=== PATIENT | female | born 1970 | race Caucasian/White ===

== ENCOUNTER 2016-10-28 16:05 | Emergency (ER) | payer MEDICAID, OTHER ==
[~2016-10-28] VITALS: Wt 54.5 kg
[~2016-10-28 16:05] MED LIST: IBUPROFEN PRN
[2016-10-28] MEDS ORDERED: ELIM TOP (16:37)
[2016-10-28] MEDS ORDERED: PRED20TA PO (16:38)
[2016-10-28] MEDS ORDERED: BEN25 PO (16:38)
--- NOTE | 2016-10-28 16:52 | ERD ---
ER Documentation Chief Complaint Date/Time DATE: 10/28/16 TIME: 16:49 Chief Complaint RASH SINCE YESTERDAY NO SOB NO STRIDOR . NO NEW FOODS OR EXPOSURE HPI This is a 46-year-old female presents to the ER for a rash that is extremely itchy. Patient got rash yesterday. Mostly located around her wrist however has arthritis body. Denies eating anything different or different. She denies any shortness of breath ,lip, eye swelling. ROS 12 point review of systems was done, all negative except per HPI. Medications Home Meds Active Scripts Diphenhydramine Hcl* (Benadryl*) 25 Mg Cap, 25 MG PO Q6, #30 CAP Prov:ROBERTO,ZAIDA C 10/28/16 Prednisone* (Prednisone*) 20 Mg Tab, 40 MG PO DAILY for 4 Days, TAB Prov:ROBERTO,ZAIDA C 10/28/16 Permethrin* (Elimite*) 5% Cr, 1 APPLIC TOP ONCE, #2 TUB Prov:ROBERTOSHERRYZAIDA C 10/28/16 Reported Medications [Ibuprofen Prn] No Conflict Check 11/25/09 Allergies Allergies: Coded Allergies: No Known Drug Allergies (Verified Allergy, Mild, 12/22/12) PMhx/Soc History of Surgery: No Anesthesia Reaction: No Hx Neurological Disorder: No Hx Respiratory Disorders: No Hx Cardiac Disorders: No Hx Psychiatric Problems: No Hx Miscellaneous Medical Probl: Yes (UTI, KIDNEY INFECTIONS.) Hx Alcohol Use: No Hx Substance Use: No Hx Tobacco Use: No Physical Exam Vitals Vital Signs Date Time Temp Pulse Resp B/P Pulse Ox O2 Delivery O2 Flow Rate FiO2 10/28/16 16:12 98.8 71 20 123/62 100 Physical Exam GENERAL: The patient is well developed and appropriate for usual state of health , in no apparent distress. HEENT: Atraumatic. No lip, tongue, eye swelling CHEST: Clear to auscultation bilaterally. There are no rales, wheezes or rhonchi. HEART: Regular rate and rhythm. No murmurs, clicks, rubs or gallops. NEURO: Alert and oriented. SKIN: Burrowing rash mostly on wrist has never scattered all over body. Procedures/MDM Differential Diagnosis: dermatitis, allergic urticaria, viral exanthem, insect bite, fungal infection ,viral exanthem, hand foot mouth disease, , impetigo, cellulitis, abscess, brian lai syndrome, meningocemia, necrotizing fasciitis, myositis. This is likely scabies. Patient be treated with permethrin. She'll be given prednisone Benadryl for itchiness. Suspicion for severe allergic reaction is low. Patient does not have any swelling of her lip, tongue, eye. Patient needs to follow-up with her primary care doctor within 1-2 days or return to ER sooner symptoms worsen. My medical decision making was shared with the patient she understands and agrees with plan. Departure Diagnosis: Primary Impression: Rash Condition: Stable Patient Instructions: Self-Care for Skin Rashes Additional Instructions: Call your primary care doctor TOMORROW for an appointment during the next 1-2 days.See the doctor sooner or return here if your condition worsens before your appointment time. ZAIDA MEJIA Oct 28, 2016 16:52
== END 2016-10-28 16:45 | disposition home or self-care (01) ==
LOC: E/R 16:05
DX: R21 Rash and other nonspecific skin eruption (principal)
CPT/HCPCS: 99283

== ENCOUNTER 2017-05-21 22:27 | Emergency (ER) | payer SELFPAY ==
[~2017-05-21] VITALS: Ht 157.5 cm; Wt 60.0 kg
[~2017-05-21 22:27] MED LIST changes: +BEN25 PO; +ELIM TOP; +PRED20TA PO
[2017-05-21 22:39] VITALS: Ht 157.5 cm; Wt 60.0 kg
[2017-05-21] MEDS ORDERED: KETOROLAC 30 MG INJ IM STA (23:25)
[2017-05-21] MEDS ORDERED: DIAZEPAM 5 MG TAB PO ONE (23:30)
--- NOTE | 2017-05-22 00:39 | RADRPT ---
PROCEDURE: XR Lumbar Spine. CLINICAL INDICATION: Low back pain. TECHNIQUE: AP, cone-down lateral, and lateral views of the lumbar spine were obtained. COMPARISON: None. FINDINGS: Mineralization is within normal limits. Vertebral bodies are normal in height. No fracture is iden tified. Lumbar lordosis is preserved. No vertebral subluxation is seen. The intervertebral discs are normal in height. Mild anterior spondylosis is present from L2-L5 Paraspinal contours are unrema rkable. RPTAT:HJJR IMPRESSION: Mild mid and lower lumbar spondylosis, otherwise unremarkable three view series of the lumbar spine. Physician Saritha Date Time Electronically viewed and signed by Physician Saritha on 05/22/2017 00:39 /
[2017-05-22] MEDS ORDERED: NAPR-260 PO (00:46)
[2017-05-22] MEDS ORDERED: CYCL-319 PO (00:46)
--- NOTE | 2017-05-22 01:02 | ERD ---
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 Status post working couple days prior to being seen. 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 She denies any ground- level fall, she denies symptoms of cauda equina. ROS All systems reviewed and are negative except as per history of present illness. Medications Home Meds Active Scripts Cyclobenzaprine Hcl* (Cyclobenzaprine Hcl*) 10 Mg Tablet, 10 MG PO TID, #30 TAB Prov:ARLENE SINGLETON PA-C 05/22/17 Naproxen* (Naprosyn*) 500 Mg Tablet, 500 MG PO BID Y for PAIN AND/OR INFLAMMATION, #30 TAB Prov:ARLENE SINLGETON PA-C 05/22/17 Diphenhydramine Hcl* (Benadryl*) 25 Mg Cap, 25 MG PO Q6, #30 CAP Prov:ZAIDA MEJIA 10/28/16 Prednisone* (Prednisone*) 20 Mg Tab, 40 MG PO DAILY for 4 Days, TAB Prov:ZAIDA MEJIA 10/28/16 Permethrin* (Elimite*) 5% Cr, 1 APPLIC TOP ONCE, #2 TUB Prov:ROBERTOZAIDA SWARTZ 10/28/16 Reported Medications [Ibuprofen Prn] No Conflict Check 11/25/09 Allergies Allergies: Coded Allergies: No Known Drug Allergies (Verified Allergy, Mild, 12/22/12) PMhx/Soc Medical and Surgical Hx: pt denies Surgical Hx History of Surgery: No Anesthesia Reaction: No Hx Neurological Disorder: No Hx Respiratory Disorders: No Hx Cardiac Disorders: No Hx Psychiatric Problems: No Hx Miscellaneous Medical Probl: Yes (UTI, KIDNEY INFECTIONS.) Hx Alcohol Use: No Hx Substance Use: No Hx Tobacco Use: No Smoking Status: Never smoker Physical Exam Vitals Vital Signs Date Time Temp Pulse Resp B/P Pulse Ox O2 Delivery O2 Flow Rate FiO2 05/21/17 22:39 98.5 81 19 107/70 100 Physical Exam GENERAL: WD/WN, in no apparent distress, non-toxic appearing HENT: NC/AT EYES: Conjunctiva normal NECK: Supple PULM: Normal labored breathing CV: Good capillary refill GI: Non-distended, no guarding BACK: no deformities noted, normal spinal curvature, TTP on lumbar region bilaterally, non-tender on spine midline, [positive left straight leg raise EXT: No clubbing, cyanosis, or edema NEURO: Moves on all fours, sensation intact, normal gait SKIN: intact PSYCH: Normal mood Results 24 hrs Current Medications Medications (Trade) Dose Ordered Sig/Wilfredo Route PRN Reason Start Time Stop Time Status Last Admin Dose Admin Ketorolac Tromethamine (Toradol) 30 mg ONCE STAT IM 05/21/17 23:25 05/21/17 23:26 DC 05/21/17 23:40 Diazepam (Valium) 10 mg ONCE ONCE PO 05/21/17 23:30 05/21/17 23:31 DC 05/21/17 23:42 Procedures/MDM This is a 46-year-old female presenting to the emergency department complaining of bilateral lumbar back pain with left sciatica. There was no evidence of cauda equina. Patient had no significant neuro deficits. Patient is neurovascular intact to be discharged home to follow-up with primary care physician for possible referral to see a physical therapist. In the ED patient was given Toradol and Valium. Patient was given prescription for Flexeril and naproxen for home. Discussed return to the ER for any worsening signs or symptoms. She understands and agrees with this plan. X-ray of the lumbar spine was done and radiologist stated - Mild mid and lower lumbar spondylosis, otherwise unremarkable three view series of the lumbar spine. Departure Diagnosis: Primary Impression: Back pain Additional Impression: Sciatica Condition: Stable Patient Instructions: When Your Child has Spondylolysis or Spondylolisthesis, Back Pain (Acute Or Chronic), Back Pain W/ Sciatica Additional Instructions: Visite a reina alyssa orellana para un EXAMEN.Regrese a estas instalaciones si no se mejora bandar esperbamos o bandar le dijimos. [place] toda la medicina akua y bandar se le indic. La medicina que se le recet puede causarle sueo.NO DEBE MANEJAR NI OPERAR MAQUINARIAS PELIGROSAS mientras esta tomando esta medicina! Regrese a estas instalaciones si no se mejora bandar esperbamos o bandar le dijimos. ARLENE SINGLETON PA-C May 22, 2017 01:02
== END 2017-05-22 01:22 | disposition home or self-care (01) ==
LOC: FTE 22:27
DX: M54.42 Lumbago with sciatica, left side (principal)
CPT/HCPCS: 72100; 96372; 99284; J1885

== ENCOUNTER 2017-06-03 15:14 | Emergency (ER) | payer MEDICAID ==
[~2017-06-03] VITALS: Wt 56.4 kg
[~2017-06-03 15:14] MED LIST changes: +CYCL-319 PO; +NAPR-260 PO
--- NOTE | 2017-06-03 16:18 | ERD ---
ER Documentation Chief Complaint Chief Complaint R RIB PAIN FROM A CORNER OF [facility]. MILD SOB AND PAIN ON INSPIRATION HPI Patient is a 47-year-old female who presents to the ED with right sided rib pain 2 days. Patient states that her glasses fell into the plastic garbage bins. Patient states that she tried to grab him by bending forward into the garbage can and the edge of the plastic garbage can pushed against the wire brought and cause pain. She denies shortness of breath however when she coughs she has pain to that side. Patient also feels like she is catching a cold and has mild sore throat and congestion. She is requesting cough medicine to stop coughing due to the pain that the coughing causes. Denies fever or chills. No sick contacts. Denies abdominal pain, nausea, vomiting or diarrhea. No other complaints. ROS All systems reviewed and are negative except as per history of present illness. Medications Home Meds Active Scripts Loratadine* (Claritin*) 10 Mg Tablet, 10 MG PO DAILY for 10 Days, TAB Prov:DANILO MARKS PA-C 06/03/17 Promethazine HCl/Codeine (Prometh-Codein 6.25-10 mg/5 ml) 5 Ml Syrup, 5 ML PO QHS for 7 Days, #100 Prov:DANILO MARKS PA-C 06/03/17 Cyclobenzaprine Hcl* (Cyclobenzaprine Hcl*) 10 Mg Tablet, 10 MG PO TID, #30 TAB Prov:ARLENE SINGLETON PA-C 05/22/17 Naproxen* (Naprosyn*) 500 Mg Tablet, 500 MG PO BID Y for PAIN AND/OR INFLAMMATION, #30 TAB Prov:ARLENE SINGLETON PA-C 05/22/17 Diphenhydramine Hcl* (Benadryl*) 25 Mg Cap, 25 MG PO Q6, #30 CAP Prov:ZAIDA MEJIA 10/28/16 Prednisone* (Prednisone*) 20 Mg Tab, 40 MG PO DAILY for 4 Days, TAB Prov:ZAIDA MEJIA 10/28/16 Permethrin* (Elimite*) 5% Cr, 1 APPLIC TOP ONCE, #2 TUB Prov:ZAIDA MEJIA 10/28/16 Reported Medications [Ibuprofen Prn] No Conflict Check 11/25/09 Allergies Allergies: Coded Allergies: No Known Drug Allergies (Verified Allergy, Mild, 12/22/12) PMhx/Soc History of Surgery: No Anesthesia Reaction: No Hx Neurological Disorder: No Hx Respiratory Disorders: No Hx Cardiac Disorders: No Hx Psychiatric Problems: No Hx Miscellaneous Medical Probl: Yes (UTI, KIDNEY INFECTIONS.) Hx Alcohol Use: No Hx Substance Use: No Hx Tobacco Use: No FmHx Family History: No coronary disease, No diabetes, No other Physical Exam Vitals Vital Signs Date Time Temp Pulse Resp B/P Pulse Ox O2 Delivery O2 Flow Rate FiO2 06/03/17 15:17 97.8 83 20 123/74 99 Physical Exam GENERAL: Well-developed, well-nourished female. Appears in no acute distress. HEAD: Normocephalic, atraumatic. EYES: Pupils are equally reactive bilaterally. EOMs grossly intact. No conjunctival erythema. ENT: Moist mucous membranes. No uvula deviation. No kissing tonsils. No exudates. NECK: Supple. No lymphadenopathy or thyromegaly. No meningismus. negative kernig. negative brudinski. LUNG: Clear to auscultation bilaterally. No rhonchi, wheezing, rales or coarse breath sounds. tenderness to right side of ribs with no ecchymosis, stepoffs or deformities. No open wounds or lacerations. HEART: Regular rate and rhythm. No murmurs, rubs or gallops. Extremities: Equal pulses bilaterally. No peripheral clubbing, cyanosis or edema. No unilateral leg swelling. NEUROLOGIC: Alert and oriented. Moving all four extremities. 5/5 strength in all extremities. Normal speech. Steady gait. SKIN: Normal color. Warm and dry. No rashes or lesions. Capillary refill < 2 seconds Procedures/MDM ER COURSE: I kept the patient and/or family informed of laboratory and diagnostic imaging results throughout the emergency room course. MEDICAL DECISION MAKING: This is a 47-year-old female who presents with right-sided rib pain and prescription for cough medicine. It occurred after patient was leaning into a plastic garbage been where it applied pressure to her right rib. Patient also has congestion, sore throat and cough and is requesting cough medication vital signs were reviewed. Patient is afebrile. Patient is not hypoxic. Is not toxic or ill-appearing. Patient likely has viral etiology of upper respiratory infection. X-ray is read by radiologist does not show fracture or dislocations. Low suspicion for ACS, PE, AAA, dissection, DVT suspicion for fracture dislocation. Patient also likely has rib contusion. DISCHARGE: At this time, patient is stable for discharge and outpatient management with no new complaints during the ER course. Patient was sent home promethazine with codeine and a copy of imaging report and claritin and naprosyn. Patient will be discharged home with instructions to recheck for new or worsening symptoms such as fever, nausea, weakness, LOC and to follow up with primary care in the next 1 -2 days. Patient was advised to return to the ER for any new or worsening symptoms. Plan was discussed and patient and/or family understands and agrees. Home instructions were given. Departure Diagnosis: Primary Impression: Rib pain Additional Impression: URI, acute Condition: Stable DANILO MARKS PA-C Jun 03, 2017 16:18
--- NOTE | 2017-06-03 17:03 | RADRPT ---
PROCEDURE: XR Chest. CLINICAL INDICATION: chest pain TECHNIQUE: Single frontal view of the chest was obtained COMPARISON: None FINDINGS: The heart and mediastinum are within normal limits. The lungs are clear. There is no pleural effusion or pneumothorax. RPTAT: AA IMPRESSION: No acute disease. .Kyle Ambrosio MD, Date Time Electronically viewed and signed by .Kyle Ambrosio MD, on 06/03/2017 17:03 .S/
--- NOTE | 2017-06-03 17:21 | RADRPT ---
PROCEDURE: Xray right ribs. CLINICAL INDICATION: Trauma. Right rib pain. TECHNIQUE: 2 views of the right ribs. Frontal and oblique. COMPARISON: None available. FINDINGS: The osseous structures and surrounding soft tissues of the right rib cage are intact. No acute frac ture is seen. No radiopaque foreign body is identified. IMPRESSION: 1. Unremarkable right ribs x-ray series. RPTAT: QQ .David Lynne MD, MD Date Time Electronically viewed and signed by .David Lynne MD, MD on 06/03/2017 17:21 .R/
[2017-06-03] MEDS ORDERED: PROM5SYR2 PO (17:31)
[2017-06-03] MEDS ORDERED: LORA-186 PO (17:31)
[2017-06-03] MEDS ORDERED: NAPR-260 PO (17:34)
== END 2017-06-03 17:42 | disposition home or self-care (01) ==
LOC: FTE 15:14
DX: J06.9 Acute upper respiratory infection, unspecified (principal)
CPT/HCPCS: 71010; 71100; Z7502

== ENCOUNTER 2018-09-21 12:00 | Emergency (ER) | payer MEDICAID, OTHER ==
[~2018-09-21] VITALS: Wt 61.1 kg
[~2018-09-21 12:00] MED LIST changes: -CYCL-319 PO; +CYCL10TA7 PO; +LORA-186 PO; -NAPR-260 PO; +NAPR-985 PO; +PROM5SYR2 PO
[2018-09-21] MEDS ORDERED: KETOROLAC 30 MG INJ IM STA (15:39)
[2018-09-21] MEDS ORDERED: BACL10TA PO (16:15)
[2018-09-21] MEDS ORDERED: IBUP-1542 PO (16:15)
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
== END 2018-09-21 16:31 | disposition home or self-care (01) ==
LOC: FTE 12:00
DX: M54.5 Low back pain (principal)
CPT/HCPCS: 81025; 96372; J1885; Z7502

== ENCOUNTER 2018-09-30 17:24 | Emergency (ER) | payer MEDICAID ==
[~2018-09-30] VITALS: Ht 157.5 cm; Wt 62.0 kg
[~2018-09-30 17:24] MED LIST changes: +BACL10TA PO; +IBUP-1542 PO
[2018-09-30 17:27] VITALS: Ht 157.5 cm; Wt 62.0 kg
[2018-09-30] MEDS ORDERED: SOD CHLORIDE 0.9% 1,000 ML IV STA (20:21)
[2018-09-30] MEDS ORDERED: DIPHENHYDRAMINE 50 MG INJ IV ONE (22:00)
[2018-09-30] MEDS ORDERED: PROCHLORPERAZINE 10 MG INJ IV ONE (22:00)
[2018-09-30] MEDS ORDERED: SOD CHLORIDE 0.9% 100 ML ONE (22:40)
[2018-09-30] MEDS ORDERED: IOHEXOL 100 ML ONE (22:40)
[2018-09-30 23:29] VITALS: TEMP 99.6
--- NOTE | 2018-10-01 00:01 | ERD ---
ER Documentation Chief Complaint Chief Complaint dizziness with head movement and weakness since yesterday HPI This is a 48-year-old female with a past medical history of recurrent UTIs and migraines who is presenting with 1-2 days of the a frontal throbbing waxing and waning moderate to severe headache with photophobia, phonophobia, nausea and lightheadedness that is exacerbated by movement of the head to the right or to the left. She feels very fatigued from this. While the patient has had migraines before, the patient reports that this feels different. The patient denies feeling sick recently. The patient denies fever or chills. The patient does not endorse neck or back pain. The patient has had no chest pain or trouble breathing. The patient denies abdominal pain. The patient denies changes to bowel movements or urination. The patient has had no focal deficits. The patient has had no weakness or numbness or tingling to the face or extremities. ROS All systems reviewed and are negative except as per history of present illness. Medications Home Meds Active Scripts Baclofen* (Baclofen*) 10 Mg Tablet, 10 MG PO Q8, #15 TAB Prov:GAYATRI BUTLER PA-C 09/21/18 Ibuprofen* (Motrin*) 600 Mg Tab, 600 MG PO Q6, #30 TAB Prov:GAYATRI BUTLER PA-C 09/21/18 Naproxen* (Naprosyn*) 500 Mg Tablet, 500 MG PO BID PRN for PAIN AND/OR INFLAMMATION, #30 TAB Prov:DANILO MARKS PA-C 06/03/17 Loratadine* (Claritin*) 10 Mg Tablet, 10 MG PO DAILY for 10 Days, TAB Prov:DANILO MARKS PA-C 06/03/17 Promethazine HCl/Codeine (Prometh-Codein 6.25-10 mg/5 ml) 5 Ml Syrup, 5 ML PO QHS for 7 Days, #100 Prov:DANILO MARKS PA-C 06/03/17 Cyclobenzaprine Hcl* (Cyclobenzaprine Hcl*) 10 Mg Tablet, 10 MG PO TID, #30 TAB Prov:ARLENE SINGLETON PA-C 05/22/17 Naproxen* (Naprosyn*) 500 Mg Tablet, 500 MG PO BID PRN for PAIN AND/OR INFLAMMATION, #30 TAB Prov:ARLENE SINGLETON PA-C 05/22/17 Diphenhydramine Hcl* (Benadryl*) 25 Mg Cap, 25 MG PO Q6, #30 CAP Prov:ZAIDA MEJIA 10/28/16 Prednisone* (Prednisone*) 20 Mg Tab, 40 MG PO DAILY for 4 Days, TAB Prov:ZAIDA MEJIA 10/28/16 Permethrin* (Elimite*) 5% Cr, 1 APPLIC TOP ONCE, #2 TUB Prov:ZAIDA MEJIA 10/28/16 Reported Medications [Ibuprofen Prn] No Conflict Check 11/25/09 Allergies Allergies: Coded Allergies: No Known Drug Allergies (Verified Allergy, Mild, 12/22/12) PMhx/Soc History of Surgery: No Anesthesia Reaction: No Hx Neurological Disorder: No Hx Respiratory Disorders: No Hx Cardiac Disorders: No Hx Psychiatric Problems: No Hx Miscellaneous Medical Probl: Yes (UTI, KIDNEY INFECTIONS.) Hx Alcohol Use: No Hx Substance Use: No Hx Tobacco Use: No Smoking Status: Never smoker FmHx Family History: No diabetes Physical Exam Vitals Vital Signs Date Temp Pulse Resp B/P (MAP) Pulse Ox O2 O2 Flow FiO2 Time Delivery Rate 10/01/18 98.5 65 15 124/80 98 Room Air 01:30 (95) 09/30/18 64 18 121/75 99 Room Air 23:33 (90) 09/30/18 99.6 54 14 83/47 (59) 100 Room Air 23:29 64 116/73 (87) 55 121/75 (90) 09/30/18 55 115/76 21:35 (89) 52 125/80 (95) 57 132/85 (101) 09/30/18 98.7 71 16 132/73 100 17:27 (92) Physical Exam Const: No apparent distress, well-developed, well-nourished Head: Normocephalic, Atraumatic Eyes: Normal Conjunctiva. Extraocular movements intact. Pupils equal, round and reactive to light ENT: Normal External Ears, Nose and Mouth. Neck: Full range of motion. No meningismus. Resp: Clear to auscultation bilaterally, No wheezes, rales or rhonchi Cardio: Regular rate and rhythm. No murmurs, rubs or gallops Abd: Soft, non tender, non distended. Normal bowel sounds Skin: No petechiae or rashes Back: No midline tenderness. No CVA tenderness Ext: No cyanosis, or edema Neur: Awake and alert, oriented 4. Cranial nerves intact. No facial droop. Normal strength, sensation and coordination. Psych: Normal Mood and Affect Result Diagram: 09/30/18203109/30/182031 Results 24 hrs Laboratory Tests Test 09/30/18 20:30 09/30/18 20:32 09/30/18 20:47 09/30/18 22:24 Thyroid Stimulating 1.060 MIU/L Hormone (TSH) Free Thyroxine 1.09 ng/dl White Blood Count 7.3 10^3/ul Red Blood Count 3.73 10^6/ul Hemoglobin 11.7 g/dl Hematocrit 35.6 % Mean Corpuscular 95.4 fl Volume Mean Corpuscular 31.4 pg Hemoglobin Mean Corpuscular 32.9 g/dl Hemoglobin Concent Red Cell 13.1 % Distribution Width Platelet Count 215 10^3/UL Mean Platelet Volume 10.3 fl Immature 0.300 % Granulocytes % Neutrophils % 40.8 % Lymphocytes % 44.7 % Monocytes % 8.5 % Eosinophils % 4.5 % Basophils % 1.2 % Nucleated Red Blood 0.0 /100WBC Cells % Immature 0.020 10^3/ul Granulocytes # Neutrophils # 3.0 10^3/ul Lymphocytes # 3.3 10^3/ul Monocytes # 0.6 10^3/ul Eosinophils # 0.3 10^3/ul Basophils # 0.1 10^3/ul Nucleated Red Blood 0.0 10^3/ul Cells # Prothrombin Time 13.0 Sec Prothrombin Time 1.0 Ratio INR International 0.97 Normalized Ratio Urine Color YELLOW Urine Clarity SLIGHTLY CLOUDY Urine pH 6.0 Urine Specific 1.009 [place] Urine Ketones NEGATIVE mg/dL Urine Nitrite NEGATIVE mg/dL Urine Bilirubin NEGATIVE mg/dL Urine Urobilinogen NEGATIVE mg/dL Urine Leukocyte NEGATIVE Juan/ul Esterase Urine Microscopic 1 /HPF RBC Urine Microscopic 4 /HPF WBC Urine Squamous MODERATE /HPF Epithelial Cells Urine Hemoglobin NEGATIVE mg/dL Urine Glucose NEGATIVE mg/dL Urine Total Protein NEGATIVE mg/dl Sodium Level 141 mmol/L Potassium Level 3.8 mmol/L Chloride Level 109 mmol/L Carbon Dioxide Level 24 mmol/L Anion Gap 8 Blood Urea Nitrogen 19 mg/dl Creatinine 0.87 mg/dl Est Glomerular > 60 mL/min Filtrat Rate mL/min Glucose Level 100 mg/dl Calcium Level 9.2 mg/dl Troponin I < 0.012 ng/ml Bedside Glucose 111 mg/dL POC Beta HCG, NEGATIVE Qualitative Current Medications Medications Dose Sig/Wilfredo Start Time Status Last (Trade) Ordered Route PRN Stop Time Admin Dose Reason Admin Sodium 1,000 ml @ Q1H STAT 09/30/18 DC 09/30/18 Chloride 1,000 mls/hr IV 20:21 09/30/18 20:54 21:20 10 mg ONCE ONCE 09/30/18 DC 09/30/18 Prochlorperaz IV 22:00 09/30/18 21:47 ine 22:01 (Compazine Inj) 25 mg ONCE ONCE 09/30/18 DC 09/30/18 Diphenhydrami IV 22:00 09/30/18 21:47 ne HCl 22:01 (Benadryl) IV Flush 10 ml STK-MED 09/30/18 DC (NS 10 ml) ONCE .ROUTE 22:40 09/30/18 22:41 Sodium 100 ml @ ud STK-MED 09/30/18 DC Chloride ONCE .ROUTE 22:40 09/30/18 22:41 Iohexol 100 ml @ ud STK-MED 09/30/18 DC ONCE .ROUTE 22:40 09/30/18 22:41 Procedures/MDM MDM The patient's presentation warrants further investigation. Previous medical records, if available, were reviewed. LABS The patient's laboratory testing was obtained and reviewed. No emergent treatment was required unless described below. CBC: No E/o systemic infection or severe anemia or thrombocytopenia Chemistry: No E/o severe acidosis or alkalosis or renal failure or diabetic ketoacidosis PT/INR: No E/o significant coagulopathy Troponin: No E/o acute ischemia BNP: No E/o heart failure Urine: No E/o acute infection or hematuria TFTs: Within normal limits EKG EKG read by me: Rate/Rhythm: Regular rate and rhythm at a rate of 64 bpm Intervals: Normal [place]: Normal Impression: No evidence of acute ischemia or arrhythmia IMAGING Imaging and Radiology interpretation reviewed. CXR FINDINGS: The heart is not enlarged. Mediastinum is not widened. No hilar masses seen. Lungs are clear of any infiltrates. There is no effusion or pneumothorax. The osseous structures appear normal. IMPRESSION: No evidence for active cardiopulmonary disease. Electronically viewed and signed by .Les Koroma MD, MD on 09/30/2018 20:50 CT head/CTA head and neck No acute intracranial findings. No CTA evidence of aneurysm, dissection, or flow-limiting stenosis. 17 mm nodule in the right thyroid lobe. Ultrasound is recommended. Loss of the normal cervical lordosis, which can be seen with muscle spasm. Mild C5-6 degenerative changes. Electronically viewed and signed by Physician Axel on 09/30/2018 23:27 TREATMENT/DISPOSITION The patient presents with headache and symptoms concerning for near syncope. Differential diagnosis includes migraine, tension headache, cluster headache. The patient has no focal deficits. The neurologic exam is reassuring. Her CT of the head was reassuring. I have decreased suspicion for cerebral ischemia. There was no trauma or injury. There is no personal or family history of cerebral aneurysm. This is not the worst headache of the patient's life. It was not acutely severe. It is been progressive in nature. I have decreased suspicion for SAH or other ICH. I have low suspicion for temporal arteritis, cavernous venous thrombosis, subdural hematoma, epidural hematoma, meningitis. Given the patient's history of worsening symptoms with movement of the neck, carotid artery dissection was also considered. The patient's CTA of the head and neck was unremarkable for any vascular disease. He did have an incidental finding of a thyroid nodule which will require outpatient workup. The patient's thyroid studies were unremarkable and I doubt this to be related to today's events. This may be followed up further in an outpatient setting. The patient has a reassuring physical exam. The patient is not clinically orthostatic. The patient is not dizzy. I have decreased suspicion for vertigo. The patient has no signs of emergent or symptomatic anemia. The patient does not have any emergent electrolyte or metabolic emergencies. The patient is not toxic appearing. I have decreased suspicion for an infectious etiology of symptoms. The patient's EKG and troponin are reassuring. I have low suspicion for acute coronary syndrome. I do not see evidence of any emergent cardiac arrhythmia, which includes but is not limited to heart block, Brugada syndrome or WPW. The patient has no heart murmurs or rales. There is no evidence of cardiomegaly on exam or chest xray. I have low suspicion for hypertrophic cardiomyopathy. I do not see evidence of CHF. The patient does not endorse any chest or pleuritic pain. The history is negative for bleeding or clotting disorders. The patient has not been involved in any recent prolonged trips or surgeries or hospitalizations. The patient has no calf tenderness or swelling. I have decreased suspicion for PE as the etiology of symptoms. The patient has no focal deficits. The neurologic exam is reassuring. I have decreased suspicion for cerebral ischemia. There was no trauma or injury. There is no personal or family history of cerebral aneurysm. I have decreased suspicion for SAH or other ICH. I have low suspicion for temporal arteritis, cavernous venous thrombosis, subdural hematoma, epidural hematoma, meningitis. The [place] Syncope Rule was applied and the patient was found to be low risk for a serious outcome. The patient was treated with medications for a headache including IV fluids, Compazine and Benadryl with resolution of her symptoms. Upon reevaluation of the patient, symptoms have improved. No emergent diagnoses were identified. At this time, I feel that the patient stable for discharge. The patient was instructed to follow-up with a primary care physician in 1-3 days. The patient will be given strict precautions with which to return to the emergency department. Prescriptions: None The patient's blood pressure was elevated at greater than 120/80 while in the emergency department. The patient was otherwise stable with no evidence of hypertensive urgency or emergency. The patient does not require admission for blood pressure control. I have discussed with the patient the risks of hypertension. I have instructed the patient to return to the ER for any new or worsening symptoms including chest pain, shortness of breath, headache, blurred vision, confusion, nausea, vomiting or LOC. I have advised the patient to follow up with the primary care physician for outpatient monitoring and treatment for hypertension in 1-3 days. Disclaimer: Inadvertent spelling and grammatical errors are likely due to EHR/dictation software use and do not reflect on the overall quality of patient care. Note that the electronic time recorded on this note does not necessarily reflect the actual time of the patient encounter. Departure Diagnosis: Primary Impression: Headache Headache type: unspecified Headache chronicity pattern: acute headache Intractability: not intractable Qualified Codes: R51 - Headache Additional Impressions: Photophobia Phonophobia Lightheadedness Nausea Thyroid nodule Near syncope Normocytic anemia Condition: Stable JAMAL GONZALEZ MD Oct 01, 2018 00:01
[2018-10-01 01:30] VITALS: BP 124/80; PULSE 65; RESP 15
== END 2018-10-01 01:30 | disposition home or self-care (01) ==
LOC: E/R 17:24
DX: H53.149 Visual discomfort, unspecified (principal); R51 Headache; R11.0 Nausea; E04.1 Nontoxic single thyroid nodule; R55 Syncope and collapse
CPT/HCPCS: 36415; 70450; 70496; 70498; 71045; 80048; 81001; 81025; 82962; 84439; 84443; 84484; 85025; 85610; 93005; 96374; 96375; J0780; J1200; J7030; Q9967; Z7502; Z7610; 81003

== ENCOUNTER 2018-11-19 19:31 | Emergency (ER) | payer MEDICAID ==
[~2018-11-19] VITALS: Ht 157.5 cm; Wt 62.1 kg
[2018-11-19 19:35] VITALS: BP 126/68; PULSE 66; RESP 18; Ht 157.5 cm; Wt 62.1 kg
[2018-11-19] MEDS ORDERED: KETOROLAC 30 MG INJ IM STA (20:32)
[2018-11-19] MEDS ORDERED: HYDR-4011 PO (20:36)
[2018-11-19] MEDS ORDERED: METR500T PO (20:36)
--- NOTE | 2018-11-19 21:29 | ERD ---
ER Documentation Chief Complaint Chief Complaint left jaw pain/swelling x 2 days, states has left broken tooth 3xmonths HPI 48-year-old female with no significant past medical history presents for left jaw pain and swelling times 2 days. States that she has a left lower jaw broken tooth 3 months ago for which she did follow with a dentist however she states that she has been waiting on the procedure for that tooth because she has other dental work that she is done. She did go to the dentist a few days ago was given Keflex. The jaw pain is noted to be 8 out of 10, intermittent, described as sharp. Pain is nonradiating. She took Naprosyn at home without relief. She is able to drink and eat soft foods currently. Denies chest pain or shortness of breath. Denies fevers or chills. ROS All systems reviewed and are negative except as per history of present illness. Medications Home Meds Active Scripts Hydrocodone/Acetaminophen ([place] 5-325 Tablet) 1 Each Tablet, 1 TAB PO Q6H PRN for PAIN, #10 TAB Prov:KIERA SERVIN DO 11/19/18 Metronidazole* (Flagyl*) 500 Mg Tablet, 500 MG PO Q8 for dental infection for 7 Days, #21 TAB Prov:KIERA SERVIN DO 11/19/18 Baclofen* (Baclofen*) 10 Mg Tablet, 10 MG PO Q8, #15 TAB Prov:GAYATRI BUTLER PA-C 09/21/18 Ibuprofen* (Motrin*) 600 Mg Tab, 600 MG PO Q6, #30 TAB Prov:GAYATRI BUTLER-C 09/21/18 Naproxen* (Naprosyn*) 500 Mg Tablet, 500 MG PO BID PRN for PAIN AND/OR INFLAMMATION, #30 TAB Prov:DANILO MARKS PA-C 06/03/17 Loratadine* (Claritin*) 10 Mg Tablet, 10 MG PO DAILY for 10 Days, TAB Prov:DANILO MARKS PA-C 06/03/17 Promethazine HCl/Codeine (Prometh-Codein 6.25-10 mg/5 ml) 5 Ml Syrup, 5 ML PO QHS for 7 Days, #100 Prov:DANILO MARKS PA-C 06/03/17 Cyclobenzaprine Hcl* (Cyclobenzaprine Hcl*) 10 Mg Tablet, 10 MG PO TID, #30 TAB Prov:ARLENE SINGLETON PA-C 05/22/17 Naproxen* (Naprosyn*) 500 Mg Tablet, 500 MG PO BID PRN for PAIN AND/OR INFLAMMATION, #30 TAB Prov:ALANPerfectoARLENE PA-C 05/22/17 Diphenhydramine Hcl* (Benadryl*) 25 Mg Cap, 25 MG PO Q6, #30 CAP Prov:ZAIDA MEJIA [place] 10/28/16 Prednisone* (Prednisone*) 20 Mg Tab, 40 MG PO DAILY for 4 Days, TAB Prov:ZAIDA MEJIA [place] 10/28/16 Permethrin* (Elimite*) 5% Cr, 1 APPLIC TOP ONCE, #2 TUB Prov:ZAIDA MEJIA [place] 10/28/16 Reported Medications [Ibuprofen Prn] No Conflict Check 11/25/09 Allergies Allergies: Coded Allergies: No Known Drug Allergies (Verified Allergy, Mild, 12/22/12) PMhx/Soc Medical and Surgical Hx: pt denies Surgical Hx History of Surgery: No Anesthesia Reaction: No Hx Neurological Disorder: No Hx Respiratory Disorders: No Hx Cardiac Disorders: No Hx Psychiatric Problems: No Hx Miscellaneous Medical Probl: Yes (UTI, KIDNEY INFECTIONS.) Hx Alcohol Use: No Hx Substance Use: No Hx Tobacco Use: No Smoking Status: Never smoker Physical Exam Vitals Vital Signs Date Temp Pulse Resp B/P (MAP) Pulse Ox O2 O2 Flow FiO2 Time Delivery Rate 11/19/18 97.8 66 18 126/68 100 19:35 (87) Physical Exam Const: No acute distress Head: Atraumatic Eyes: Normal Conjunctiva ENT: Normal External Ears, Nose. There is left mandibular swelling externally, no underlying fluctuance, there is a left lower jaw chipped tooth noted. Patient is able to move her jaw however there is some pain. There is no tonsillar swelling noted, uvula is midline. Neck: Full range of motion. No meningismus. Resp: Clear to auscultation bilaterally, patient speaking in full sentences. Cardio: Regular rate and rhythm, no murmurs Skin: No petechiae or rashes Ext: No cyanosis, or edema Neur: Awake and alert Psych: Normal Mood and Affect Results 24 hrs Laboratory Tests Test 11/19/18 20:46 POC Beta HCG, Qualitative NEGATIVE Current Medications Medications Dose Sig/Wilfredo Start Time Status Last (Trade) Ordered Route PRN Stop Time Admin Dose Reason Admin Ketorolac 30 mg ONCE STAT 11/19/18 DC 11/19/18 Tromethamine IM 20:32 20:53 (Toradol) 11/19/18 20:35 Procedures/MDM Medical Decision Making: Differential diagnosis includes but not limited to peritonsillar abscess, [place]'s angina, otitis media, TMJ syndrome, dental caries, dental abscess Patient appeared well on physical exam. Nontoxic appearing, patient speaking full sentences. ED course: Patient was given Toradol. Symptoms improved with treatment. Patient possibly dental abscess. Patient however is nontoxic appearing therefore it was felt patient is appropriate for a trial of antibiotic as an outpatient. Patient is advised to follow with her dentist. Patient does state that she has an appoint with her dentist tomorrow. Patient advised to return to the ED in 24-48 hours for reexamination if she is unable to follow with her dentist. Prescription(s): Patient given prescription for supportive medication(s) and [place] short course low-dose. Patient advised to follow up with PCP in 1-2 days. Patient advised to return to ED for new or worsening symptoms. Patient stable on discharge from the ED. The patient has been prescribed [place] during this encounter. The patient has been warned about the use of narcotics. The patient should not drive or operate heavy machinery while taking this medication. The patient was also warned about the addictive properties of narcotic medications. Narcan prescription was NOT provided given the following criteria 1. No more than 5 tablets of [place] 10 mg or 10 tablets of [place] 5 mg were prescribed. 2. Concomitant opiate and benzodiazepine prescriptions were not provided. 3. There is no obvious evidence of prior history of opiate abuse or overdose. Disclaimer: Inadvertent spelling and grammatical errors are likely due to EHR/dictation software use and do not reflect on the overall quality of patient care. Also, please note that the electronic time recorded on this note does not necessarily reflect the actual time of the patient encounter. Departure Diagnosis: Primary Impression: Dental infection Condition: Fair Patient Instructions: Dental Pain Additional Instructions: Call your primary care doctor TOMORROW for an appointment during the next 1-2 days.See the doctor sooner or return here if your condition worsens before your appointment time. KIERA SERVIN DO Nov 19, 2018 21:28
== END 2018-11-19 21:32 | disposition home or self-care (01) ==
LOC: FTE 19:31
DX: K04.7 Periapical abscess without sinus (principal)
CPT/HCPCS: 81025; 96372; J1885; Z7502

== ENCOUNTER 2019-01-30 19:57 | Emergency (ER) | payer MEDICAID ==
[~2019-01-30] VITALS: Ht 157.5 cm; Wt 60.1 kg
[~2019-01-30 19:57] MED LIST changes: +HYDR-4011 PO; +METR500T PO
[2019-01-30 20:03] VITALS: Ht 157.5 cm; Wt 60.1 kg
[2019-01-30] MEDS ORDERED: KETOROLAC 15 MG INJ IV STA (20:56)
[2019-01-30] MEDS ORDERED: LACTATED RINGER'S 1,000 ML IV STA (20:56)
--- NOTE | 2019-01-30 21:00 | ERD ---
ER Documentation Chief Complaint Chief Complaint CP x1 day, worse w/ deep breathing. no SOB/n/v HPI 48-year-old woman states she has had sharp nonexertional nonradiating left-sided chest pain precipitated by deep inspiration. Her pain lasts for a couple of minutes multiple times throughout the day. She denies cough, no fevers or chills, no trauma, no headache or blurry vision, no shortness of breath or diaphoresis. Patient states she has been feeling a little more stress than usual lately ROS All systems reviewed and are negative except as per history of present illness. Medications Home Meds Active Scripts Ibuprofen* (Motrin*) 600 Mg Tab, 600 MG PO Q8 PRN for PAIN AND/OR INFLAMMATION, #30 TAB Prov:NIMESH ANDREWS MD 01/30/19 Naproxen* (Naprosyn*) 500 Mg Tablet, 500 MG PO BID PRN for PAIN AND/OR INFLAMMATION, #30 TAB Prov:DANILO MARKS PA-C 06/03/17 Discontinued Reported Medications [Ibuprofen Prn] No Conflict Check 11/25/09 Discontinued Scripts Hydrocodone/Acetaminophen ([place] 5-325 Tablet) 1 Each Tablet, 1 TAB PO Q6H PRN for PAIN, #10 TAB Prov:KIERA SERVIN DO 11/19/18 Metronidazole* (Flagyl*) 500 Mg Tablet, 500 MG PO Q8 for dental infection for 7 Days, #21 TAB Prov:KIERA SERVIN DO 11/19/18 Baclofen* (Baclofen*) 10 Mg Tablet, 10 MG PO Q8, #15 TAB Prov:GAYATRI BUTLER PA-C 09/21/18 Ibuprofen* (Motrin*) 600 Mg Tab, 600 MG PO Q6, #30 TAB Prov:GAYATRI BUTLER PA-C 09/21/18 Loratadine* (Claritin*) 10 Mg Tablet, 10 MG PO DAILY for 10 Days, TAB Prov:DANILO MARKS PA-C 06/03/17 Promethazine HCl/Codeine (Prometh-Codein 6.25-10 mg/5 ml) 5 Ml Syrup, 5 ML PO QHS for 7 Days, #100 Prov:DANILO MARKS PA-C 06/03/17 Cyclobenzaprine Hcl* (Cyclobenzaprine Hcl*) 10 Mg Tablet, 10 MG PO TID, #30 TAB Prov:ARLENE SINGLETON PA-C 05/22/17 Naproxen* (Naprosyn*) 500 Mg Tablet, 500 MG PO BID PRN for PAIN AND/OR INFLAMMATION, #30 TAB Prov:ARLENE SINGLETON PA-C 05/22/17 Diphenhydramine Hcl* (Benadryl*) 25 Mg Cap, 25 MG PO Q6, #30 CAP Prov:ROBERTOZAIDA Crowder 10/28/16 Prednisone* (Prednisone*) 20 Mg Tab, 40 MG PO DAILY for 4 Days, TAB Prov:SHERRY MEJIAMARILY Crowder 10/28/16 Permethrin* (Elimite*) 5% Cr, 1 APPLIC TOP ONCE, #2 TUB Prov:SHERRY MEJIAMARILY Crowder 10/28/16 Allergies Allergies: Coded Allergies: No Known Drug Allergies (Verified Allergy, Mild, 12/22/12) PMhx/Soc None History of Surgery: No Anesthesia Reaction: No Hx Neurological Disorder: No Hx Respiratory Disorders: No Hx Cardiac Disorders: No Hx Psychiatric Problems: No Hx Miscellaneous Medical Probl: Yes (UTI, KIDNEY INFECTIONS, DEPRESSION) Hx Alcohol Use: No Hx Substance Use: No Hx Tobacco Use: Yes Smoking Status: Current every day smoker FmHx Family History: No diabetes Physical Exam Vitals Vital Signs Date Temp Pulse Resp B/P (MAP) Pulse Ox O2 O2 Flow FiO2 Time Delivery Rate 01/30/19 98.0 52 18 107/78 100 Room Air 22:20 (88) 01/30/19 70 18 115/79 100 Room Air 20:15 (91) 01/30/19 98.7 71 16 135/69 99 20:03 (91) Physical Exam GENERAL: Well-developed, well-nourished, well-hydrated, in no apparent distress, looks nontoxic in appearance HEENT: Moist mucous membranes, pink conjunctiva, no cervical spine tenderness or step-off deformities, no goiter, no jaundice or icterus, extraocular movements intact without pain. NEURO: Alert and oriented 3, cranial nerves II through XII intact bilaterally, pupils equal round reactive to light, no focal deficits or facial asymmetry, sensation intact distally Strength 5/5 in upper and lower extremities bilaterally CARDIAC: Regular rate and rhythm, no murmurs rubs or gallops LUNGS: Clear bilaterally no wheezing crackles or stridor EXTREMITIES: No clubbing cyanosis or edema, calves are bilaterally symmetrical, no Homans sign, no popliteal cord sign. Distal pulses equal and bilateral Result Diagram: 01/30/19202701/30/192027 Results 24 hrs Laboratory Tests Test 01/30/19 20:28 White Blood Count 8.4 10^3/ul Red Blood Count 3.85 10^6/ul Hemoglobin 12.0 g/dl Hematocrit 35.8 % Mean Corpuscular Volume 93.0 fl Mean Corpuscular Hemoglobin 31.2 pg Mean Corpuscular Hemoglobin Concent 33.5 g/dl Red Cell Distribution Width 13.2 % Platelet Count 191 10^3/UL Mean Platelet Volume 10.4 fl Immature Granulocytes % 0.200 % Neutrophils % 30.2 % Lymphocytes % 58.1 % Monocytes % 6.4 % Eosinophils % 4.0 % Basophils % 1.1 % Nucleated Red Blood Cells % 0.0 /100WBC Immature Granulocytes # 0.020 10^3/ul Neutrophils # 2.5 10^3/ul Lymphocytes # 4.9 10^3/ul Monocytes # 0.5 10^3/ul Eosinophils # 0.3 10^3/ul Basophils # 0.1 10^3/ul Nucleated Red Blood Cells # 0.0 10^3/ul Sodium Level 142 mmol/L Potassium Level 4.0 mmol/L Chloride Level 107 mmol/L Carbon Dioxide Level 27 mmol/L Anion Gap 8 Blood Urea Nitrogen 17 mg/dl Creatinine 0.82 mg/dl Est Glomerular Filtrat Rate mL/min > 60 mL/min Glucose Level 93 mg/dl Calcium Level 9.6 mg/dl Total Bilirubin 0.2 mg/dl Direct Bilirubin 0.00 mg/dl Indirect Bilirubin 0.2 mg/dl Aspartate Amino Transf (AST/SGOT) 42 IU/L Alanine Aminotransferase (ALT/SGPT) 23 IU/L Alkaline Phosphatase 90 IU/L Troponin I < 0.012 ng/ml Total Protein 8.0 g/dl Albumin 4.4 g/dl Globulin 3.60 g/dl Albumin/Globulin Ratio 1.22 Lipase 135 U/L Current Medications Medications Dose Sig/Wilfredo Start Time Status Last (Trade) Ordered Route PRN Stop Time Admin Dose Reason Admin Lactated 1,000 ml @ Q1H STAT 01/30/19 DC 01/30/19 Ringer's 1,000 mls/hr IV 20:56 01/30/19 21:03 21:55 Ketorolac 15 mg ONCE STAT 01/30/19 DC 01/30/19 Tromethamine IV 20:56 01/30/19 21:03 (Toradol) 20:58 Procedures/MDM IV line was established patient was placed on awake overnight monitor rhythm strip revealed a sinus rhythm at about 70 bpm with upright P and T waves. Patient was afebrile EKG performed, read by me: 66 bpm, normal sinus rhythm, normal axis, no acute ST segment changes, narrow QRS complex, with good R-wave progression in precordial leads. One AP view of the chest performed, read by me reveals no acute infiltrates, normal mediastinum, sharp costophrenic and cardiac borders, no air under the diaphragm. Otherwise unremarkable chest x-ray. I administered 1 L LR IV and Toradol 15 mg IV CBC and electrolytes are normal, liver function tests were normal, troponin was negative Patient's pain completely resolved and she feels much better, work-up was unremarkable here and a cardiac or pulmonary etiology for her symptoms is highly unlikely Differential diagnoses considered, included but not limited to acute coronary syndrome, pulmonary embolism, aortic dissection, abdominal aortic aneurysm, sepsis, stroke, meningitis, encephalitis, pneumonia, appendicitis, cholecystitis, bowel obstruction, pyelonephritis, nephrolithiasis, cystitis, as well as metabolic, hematologic, and electrolyte abnormalities. As well as abscess, cellulitis, fractures, and dislocations. Patient feels much better at this time, and vital signs are normal, symptoms have improved. I did give strict instructions to return to the ED if symptoms continue or worsen, patient will otherwise follow-up with primary care physician. Patient understood instructions and agreed to plan. Disclaimer: Inadvertent spelling and grammatical errors are likely due to EHR/dictation software use and do not reflect on the overall quality of patient care. Also, please note that the electronic time recorded on this note does not necessarily reflect the actual time of the patient encounter. Departure Diagnosis: Primary Impression: Chest pain Chest pain type: unspecified Qualified Codes: R07.9 - Chest pain, unspecified Condition: Good NIMESH ANDREWS MD Jan 30, 2019 21:00
[2019-01-30] MEDS ORDERED: IBUP-1542 PO (21:57)
[2019-01-30 22:20] VITALS: BP 107/78; PULSE 52; RESP 18
== END 2019-01-30 22:20 | disposition home or self-care (01) ==
LOC: E/R 19:57
DX: R07.9 Chest pain, unspecified (principal); F17.210 Nicotine dependence, cigarettes, uncomplicated
CPT/HCPCS: 36415; 71045; 80053; 83690; 84484; 85025; 93005; 96374; J1885; J7120; Z7502

== ENCOUNTER 2019-02-05 13:52 | Emergency (ER) | payer MEDICAID ==
[~2019-02-05] VITALS: Ht 157.5 cm; Wt 61.5 kg
[~2019-02-05 13:52] MED LIST changes: -BACL10TA PO; -BEN25 PO; -CYCL10TA7 PO; -ELIM TOP; -HYDR-4011 PO; -IBUPROFEN PRN; -LORA-186 PO; -METR500T PO; -PRED20TA PO; -PROM5SYR2 PO
[2019-02-05 14:17] VITALS: BP 127/70; PULSE 69; RESP 18; Ht 157.5 cm; Wt 61.5 kg
[2019-02-05] MEDS ORDERED: KETOROLAC 60 MG INJ IM STA (15:14)
[2019-02-05] MEDS ORDERED: IBUP-1542 PO (16:44)
--- NOTE | 2019-02-05 16:57 | ERD ---
ER Documentation Chief Complaint Chief Complaint LEFT SHOULDER PAIN X5 DAYS, radiating to armpit HPI 48-year-old female present complaint of left shoulder pain for the past 5 days. Patient states that she was here in the ER several days ago and was given a chest x-ray as well as an EKG and all results within normal limits. Patient states she had episode where she was coughing and thinks is possible she might of pulled a muscle. Denies any trauma to the arm. Denies SOB, dyspnea, lower extremity swelling or pain, pain on exertion, diaphoresis, nausea, radiating of pain, recent travel or immobilization, hemoptysis, dsypnea, history of clotting disorder, syncope, fever, or cough. ROS All systems reviewed and are negative except as per history of present illness. Medications Home Meds Active Scripts Ibuprofen* (Motrin*) 600 Mg Tab, 600 MG PO Q6, #30 TAB Prov:NORA SUN 02/05/19 Ibuprofen* (Motrin*) 600 Mg Tab, 600 MG PO Q8 PRN for PAIN AND/OR INFLAMMATION, #30 TAB Prov:NIMESH ANDREWS MD 01/30/19 Naproxen* (Naprosyn*) 500 Mg Tablet, 500 MG PO BID PRN for PAIN AND/OR INFLAMMATION, #30 TAB Prov:DNAILO MARKS PA-C 06/03/17 Discontinued Reported Medications [Ibuprofen Prn] No Conflict Check 11/25/09 Discontinued Scripts Hydrocodone/Acetaminophen ([place] 5-325 Tablet) 1 Each Tablet, 1 TAB PO Q6H PRN for PAIN, #10 TAB Prov:KIERA SERVIN DO 11/19/18 Metronidazole* (Flagyl*) 500 Mg Tablet, 500 MG PO Q8 for dental infection for 7 Days, #21 TAB Prov:KIERA SERVIN DO 11/19/18 Baclofen* (Baclofen*) 10 Mg Tablet, 10 MG PO Q8, #15 TAB Prov:GAYATRI BUTLER PA-C 09/21/18 Ibuprofen* (Motrin*) 600 Mg Tab, 600 MG PO Q6, #30 TAB Prov:GAYATRI BUTLER PA-C 09/21/18 Loratadine* (Claritin*) 10 Mg Tablet, 10 MG PO DAILY for 10 Days, TAB Prov:DANILO MARKS PA-C 06/03/17 Promethazine HCl/Codeine (Prometh-Codein 6.25-10 mg/5 ml) 5 Ml Syrup, 5 ML PO QHS for 7 Days, #100 Prov:DANILO MARKS PA-C 06/03/17 Cyclobenzaprine Hcl* (Cyclobenzaprine Hcl*) 10 Mg Tablet, 10 MG PO TID, #30 TAB Prov:ARLENE SINGLETON PA-C 05/22/17 Naproxen* (Naprosyn*) 500 Mg Tablet, 500 MG PO BID PRN for PAIN AND/OR INFLAMMATION, #30 TAB Prov:ARLENE SINGLETON PA-C 05/22/17 Diphenhydramine Hcl* (Benadryl*) 25 Mg Cap, 25 MG PO Q6, #30 CAP Prov:ZAIDA MEJIA 10/28/16 Prednisone* (Prednisone*) 20 Mg Tab, 40 MG PO DAILY for 4 Days, TAB Prov:ZAIDA MEJIA 10/28/16 Permethrin* (Elimite*) 5% Cr, 1 APPLIC TOP ONCE, #2 TUB Prov:ZAIDA MEJIA 10/28/16 Allergies Allergies: Coded Allergies: No Known Drug Allergies (Verified Allergy, Mild, 02/05/19) PMhx/Soc History of Surgery: No Anesthesia Reaction: No Hx Neurological Disorder: No Hx Respiratory Disorders: No Hx Cardiac Disorders: No Hx Psychiatric Problems: No Hx Miscellaneous Medical Probl: Yes (DEPRESSION) Hx Alcohol Use: No Hx Substance Use: No Hx Tobacco Use: Yes Smoking Status: Never smoker FmHx Family History: No diabetes, No coronary disease, No other Physical Exam Vitals Vital Signs Date Temp Pulse Resp B/P (MAP) Pulse Ox O2 O2 Flow FiO2 Time Delivery Rate 02/05/19 98.1 69 18 127/70 99 14:17 (89) Physical Exam Const: No acute distress Head: Atraumatic Eyes: Normal Conjunctiva ENT: Normal External Ears, Nose and Mouth. Neck: Full range of motion. No meningismus. Resp: Clear to auscultation bilaterally Cardio: Regular rate and rhythm, no murmurs Abd: Soft, non tender, non distended. Normal bowel sounds Skin: No petechiae or rashes Back: No midline or flank tenderness Ext: No cyanosis, or edema. Mild tenderness palpation over the anterior aspect of left shoulder without any bony deformity noted. There is full range of motion of shoulder. All distal pulses and sensation are intact. 5 out of 5 strength in upper extremities. Neur: Awake and alert Psych: Normal Mood and Affect Results 24 hrs Laboratory Tests Test 02/05/19 15:31 POC Beta HCG, Qualitative NEGATIVE Current Medications Medications Dose Sig/Wilfredo Start Time Status Last (Trade) Ordered Route PRN Stop Time Admin Dose Reason Admin Ketorolac 60 mg ONCE STAT 02/05/19 DC 02/05/19 Tromethamine IM 15:14 02/05/19 15:34 (Toradol) 15:15 Procedures/MDM MDM: EKG and x-ray within normal limits. There is tenderness palpation of the shoulder leading me to believe that is more muscular skeletal in etiology than anything else. Possibly sprained a muscle through coughing. In addition patient's well score is very low and does not warrant d-dimer testing. I have low suspicition for acute coronary syndrome, pulmonary embolism, aortic dissection, AAA, pneumothorax, esophageal rupture, pericarditis, myocarditis, or pneumonia based on EKG, imaging, labs, patient history and exam. Patient given ibuprofen for pain. At this time, patient is stable for discharge and outpatient management. I have instructed the patient to follow-up with his/her [facility] care physician in 1-2 days. I have discussed with the patient the possibility of needing to see a specialist for further workup and imaging studies if symptoms persist. I have instructed the patient to promptly return to the ER for any new or worsening symptoms including but not limited to increased pain, fever, nausea, vomiting, weakness or LOC. The patient and/or family ex pressed understanding of and agreement with this plan. All questions were answered. Home care instructions were provided. DISCLAIMER: Inadvertent spelling and grammatical errors are likely due to EHR/dictation software use and do not reflect on the overall quality of patient care. Also, please note that the electronic time recorded on this note does not necessarily reflect the actual time of the patient encounter. Departure Diagnosis: Primary Impression: Shoulder pain Condition: Stable Patient Instructions: Shoulder Pain (Uncertain Cause) Referrals: [facility] (PCP) Additional Instructions: FOLLOW UP WITH YOUR PRIMARY CARE PHYSICIAN TOMORROW.Return to this facility if you are not improving as expected. NORA SUN 8, 2019 16:57
== END 2019-02-05 16:44 | disposition home or self-care (01) ==
LOC: FTE 13:52
DX: M25.512 Pain in left shoulder (principal); Z87.891 Personal history of nicotine dependence
CPT/HCPCS: 73030; 81025; 93005; 96372; J1885; Z7502